=== PATIENT | female | born 1945 | race African-American/Black ===

== ENCOUNTER 2017-12-05 11:53 | Inpatient (IN) | payer MEDICARE ==
[~2017-12-05] VITALS: Ht 165.1 cm; Wt 157.1 kg
[~2017-12-05 11:53] MED LIST: AML5T PO; ASPI-231 PO; ATOR40TA52 PO; BISA5TAB PO; BUME2TAB3 PO; DICL1GEL35 TD; FLUT250M2 INH; GABA300C11 GT; ISO60SRT PO; MAGN400T7 PO; MET25T PO; NITR400A5 TL; PANT40T PO; POTA1TAB4 PO; TIOTCAP INH; WARF7.5T20 PO; [UNRECOGNIZED DRUG - CODE] PO
[2017-12-05] MEDS ORDERED: SODIUM CHLORIDE 0.9% 1,000 ML IV ONE (12:49)
[2017-12-05 12:58] LABS: Basophils # (auto) 0 uL; Basophils % (auto) 0.6 % (0.0-2.0); Eosinophils # (auto) 0.1 uL; Eosinophils % (auto) 1.7 % (0.0-7.0); Hemoglobin 15.5 g/dL (12.2-16.2); Lymphocytes # (auto) 1.7 uL; Lymphocytes % (auto) 25.5 % (10.0-50.0); Mean Corpuscular Hemoglobin 31.1 pg (28.0-32.0); Mean Corpuscular Volume 94.3 fL (80.0-100.0); Monocytes # (auto) 0.9 uL; Monocytes % (auto) 12.8 % (0.0-12.0); Neutrophils % (auto) 59.4 % (37.0-80.0); Nucleated Red Blood Cells % 0.1 %; Platelet Count (auto) 205 10^3/uL (140-450); Red Blood Cells 4.99 10^6/uL (4.0-5.20); Red Cell Distribution Width 15.1 % (11.8-14.3); White Blood Cell 6.8 10^3/uL (4.4-10.8)
[2017-12-05] MEDS ORDERED: cefTRIAXone 1GM/10ml IVPUSH 10 ML IV ONE (13:00)
[2017-12-05] MEDS ORDERED: KETOROLAC TROMETH 30 MG/ML 1ML VIAL IV ONE (13:00)
[2017-12-05] MEDS ORDERED: cloNIDine HCL 0.1 MG TAB PO ONE (13:00)
[2017-12-05 13:27] LABS: Alanine Aminotransferase 16 U/L (13-56); Albumin 3.2 g/dL (3.4-5.0); Alkaline Phosphatase 104 U/L (45-117); Anion Gap 7 (5-15); Aspartate Aminotransferase 17 U/L (15-37); Bilirubin, Total 0.9 mg/dL (0.2-1.0); Blood Urea Nitrogen 12 mg/dL (7-18); Calcium 8.7 mg/dL (8.5-10.1); Carbon Dioxide 26 mmol/L (21-32); Chloride 104 mmol/L (98-107); GFR African American 84 mL/min; GFR Non-African American 69 mL/min; Glucose 95 mg/dL (74-106); Potassium 3.8 mmol/L (3.5-5.1); Sodium 137 mmol/L (136-145); Total Protein 8.5 g/dL (6.4-8.2)
[2017-12-05] MEDS ORDERED: TEMAZEPAM 15 MG CAP PO PRN (15:15)
[2017-12-05] MEDS ORDERED: NITROGLYCERIN 0.4 MG SL TAB SL PRN (15:15)
[2017-12-05] MEDS ORDERED: DEXTROSE (50%) 50ML SYRG IV PRN (15:15)
[2017-12-05] MEDS ORDERED: LORazepam 0.5 MG TAB PO PRN (15:15)
[2017-12-05] MEDS ORDERED: ACETAMINOPHEN 500 MG TAB PO PRN (15:15)
[2017-12-05] MEDS ORDERED: PROMETHAZINE HCL 25 MG/ML 1ML IV PRN (15:15)
[2017-12-05] MEDS ORDERED: LACTULOSE 20Gm/30ML SOLN PO PRN (15:15)
[2017-12-05] MEDS ORDERED: MORPHINE SULFATE 4 MG/ML SYR/VIAL IV PRN (15:15)
[2017-12-05 15:32] LABS: Uric Acid 5.8 mg/dL (2.6-6.0)
[2017-12-05 15:50] LABS: INR 1.05 (0.9-1.15); Partial Thromboplastin Time 31.1 sec (22.64-33.71); Prothrombin Time 11.5 sec (9.37-12.3)
[2017-12-05 15:54] LABS: CRP High Sensitivity 12.5 mg/dL (< 0.3)
[2017-12-05] MEDS: SODIUM CHLORIDE 0.9% 1,000 ML IV SCH (16:20)
[2017-12-05] MEDS: CLINDAMYCIN 600MG IV 50 ML IV SCH (16:20)
[2017-12-05] MEDS ORDERED: WARFARIN SODIUM 2.5 MG TAB PO ONE (17:00)
[2017-12-05] MEDS: InsuLIN REG 1unit/0.01ml Soln (100units/ml) SC SCH ×2 (17:00→22:00)
[2017-12-05 17:39] VITALS: BP 146/94
[2017-12-05] MEDS: ACCU-CHEK COMFORT CURVE STRIP VI SCH (17:59)
[2017-12-05] MEDS ORDERED: PATIENTS OWN MEDICATION (Atorvastatin Calcium 1 TAB) PO SCH (18:00)
[2017-12-05] MEDS: IPRATROPIUM BROM 0.5 MG/2.5ML INH SOL NEB SCH (18:15)
[2017-12-05] MEDS: BUDESONIDE (INHALATION) 0.5 MG/2 ML NEB NEB SCH (18:15)
[2017-12-05] MEDS: ALBUTEROL SULF 2.5 MG/0.5ML(0.5%) NEB SOLN NEB SCH (18:15)
[2017-12-05] MEDS: MORPHINE SULFATE 4 MG/ML SYR/VIAL IV PRN (20:02)
[2017-12-05] MEDS: ATORVASTATIN 20 MG TAB PO SCH (21:40)
[2017-12-05] MEDS: GABAPENTIN 300 MG CAP PO SCH (21:42)
[2017-12-05] MEDS: METOPROLOL TARTRATE 25 MG TAB PO SCH (21:42)
[2017-12-05 22:00] VITALS: BP 140/76
[2017-12-05] MEDS ORDERED: PATIENTS OWN MEDICATION (Fluticasone-Salmeterol (Advair Diskus 250/50) 1 PUFF) INH SCH (22:00)
[2017-12-05 23:53] VITALS: BP 140/76
[2017-12-06] MEDS: ALBUTEROL SULF 2.5 MG/0.5ML(0.5%) NEB SOLN NEB SCH ×4 (00:18→18:37)
[2017-12-06] MEDS: IPRATROPIUM BROM 0.5 MG/2.5ML INH SOL NEB SCH ×4 (00:18→18:37)
[2017-12-06] MEDS: MORPHINE SULFATE 4 MG/ML SYR/VIAL IV PRN ×3 (01:00→14:31)
[2017-12-06] MEDS: ACCU-CHEK COMFORT CURVE STRIP VI SCH ×2 (02:05→07:06)
[2017-12-06] MEDS: CLINDAMYCIN 600MG IV 50 ML IV SCH ×3 (02:31→16:30)
[2017-12-06] MEDS: SODIUM CHLORIDE 0.9% 1,000 ML IV SCH (03:38)
[2017-12-06 05:00] VITALS: BP 114/62
[2017-12-06] MEDS: GABAPENTIN 300 MG CAP PO SCH ×3 (05:57→23:05)
[2017-12-06 06:26] LABS: Basophils # (auto) 0 uL; Basophils % (auto) 0.7 % (0.0-2.0); Eosinophils # (auto) 0.2 uL; Eosinophils % (auto) 4.7 % (0.0-7.0); Hematocrit 43.4 % (36.0-46.0); Hemoglobin 14.1 g/dL (12.2-16.2); Lymphocytes # (auto) 1.2 uL; Lymphocytes % (auto) 27.6 % (10.0-50.0); Mean Corpuscular Hemoglobin 30.6 pg (28.0-32.0); Mean Corpuscular Hgb Conc. 32.5 g/dL (32.0-36.0); Monocytes # (auto) 0.7 uL; Monocytes % (auto) 15.8 % (0.0-12.0); Neutrophils # (auto) 2.3 uL; Neutrophils % (auto) 51.2 % (37.0-80.0); Platelet Count (auto) 192 10^3/uL (140-450); Red Blood Cells 4.62 10^6/uL (4.0-5.20); Red Cell Distribution Width 14.8 % (11.8-14.3); White Blood Cell 4.5 10^3/uL (4.4-10.8)
[2017-12-06 06:42] LABS: INR 1.01 (0.9-1.15); Partial Thromboplastin Time 29.8 sec (22.64-33.71)
[2017-12-06 06:45] LABS: Cholesterol 116 mg/dL (< 200); HDL Cholesterol 50 mg/dL (40-59); LDL Cholesterol 66 mg/dL (< 100); Triglycerides 78 mg/dL (< 150)
[2017-12-06] MEDS: InsuLIN REG 1unit/0.01ml Soln (100units/ml) SC SCH (07:00)
[2017-12-06 09:00] VITALS: BP 139/76
[2017-12-06] MEDS: METOPROLOL TARTRATE 25 MG TAB PO SCH ×2 (10:00→22:00)
[2017-12-06] MEDS ORDERED: PATIENTS OWN MEDICATION (Tiotropium Bromide Monohydrate (Spiriva Handihaler) 1 CAP) INH SCH (10:00)
[2017-12-06] MEDS: amLODIPine BESYLATE 5 MG TAB PO SCH (10:07)
[2017-12-06] MEDS: MAGNESIUM OXIDE 400 MG TAB PO SCH (10:07)
[2017-12-06] MEDS: cefTRIAXone 1GM/10ml IVPUSH 10 ML IV SCH (10:07)
[2017-12-06] MEDS: ISOSORBIDE MONONITRATE 60 MG TAB PO SCH (10:08)
[2017-12-06] MEDS: ASPirin-EC 81 mg tab PO SCH (10:08)
[2017-12-06] MEDS: PANTOPRAZOLE 40 MG TAB PO SCH (10:08)
[2017-12-06] MEDS: BISACODYL 5 MG EC TAB PO SCH (10:09)
[2017-12-06] MEDS: BUDESONIDE (INHALATION) 0.5 MG/2 ML NEB NEB SCH ×2 (12:11→18:37)
[2017-12-06 13:00] VITALS: BP 125/60
[2017-12-06] MEDS ORDERED: SODIUM CHLORIDE 0.9% 1,000 ML IV SCH (13:30)
[2017-12-06] MEDS ORDERED: WARFARIN SODIUM 2.5 MG TAB PO ONE (17:00)
[2017-12-06] MEDS: BUMETANIDE 1 MG TAB PO SCH (17:37)
[2017-12-06 17:54] VITALS: BP_SYST 114; BP_SYST 130; BP_DIAS 69
[2017-12-06 20:00] VITALS: BP 115/65
[2017-12-06 22:07] VITALS: BP 103/56
[2017-12-06] MEDS: ATORVASTATIN 20 MG TAB PO SCH (23:05)
[2017-12-06] MEDS: HYDROcodone-ACET 5/325MG TAB PO PRN (23:05)
[2017-12-07] MEDS: IPRATROPIUM BROM 0.5 MG/2.5ML INH SOL NEB SCH ×4 (00:16→18:26)
[2017-12-07] MEDS: ALBUTEROL SULF 2.5 MG/0.5ML(0.5%) NEB SOLN NEB SCH ×4 (00:16→18:27)
[2017-12-07] MEDS: CLINDAMYCIN 600MG IV 50 ML IV SCH ×3 (00:43→15:47)
[2017-12-07 04:34] VITALS: BP 113/62
[2017-12-07] MEDS: BUMETANIDE 1 MG TAB PO SCH ×2 (05:48→17:47)
[2017-12-07] MEDS: GABAPENTIN 300 MG CAP PO SCH ×3 (05:49→22:21)
[2017-12-07] MEDS: BUDESONIDE (INHALATION) 0.5 MG/2 ML NEB NEB SCH ×2 (06:03→18:27)
[2017-12-07 07:38] LABS: BUN/Creatinine Ratio 18.3; Calcium 8.2 mg/dL (8.5-10.1); INR 1.15 (0.9-1.15); Magnesium 2.2 mg/dL (1.6-2.6); Potassium 3.8 mmol/L (3.5-5.1); Prothrombin Time 12.6 sec (9.37-12.3)
[2017-12-07 09:00] VITALS: BP 102/77
[2017-12-07] MEDS: cefTRIAXone 1GM/10ml IVPUSH 10 ML IV SCH (10:27)
[2017-12-07] MEDS: ASPirin-EC 81 mg tab PO SCH (10:27)
[2017-12-07] MEDS: PANTOPRAZOLE 40 MG TAB PO SCH (10:28)
[2017-12-07] MEDS: MAGNESIUM OXIDE 400 MG TAB PO SCH (10:29)
[2017-12-07] MEDS: ISOSORBIDE MONONITRATE 60 MG TAB PO SCH (10:29)
[2017-12-07] MEDS: BISACODYL 5 MG EC TAB PO SCH (10:29)
[2017-12-07] MEDS: amLODIPine BESYLATE 5 MG TAB PO SCH (10:29)
[2017-12-07] MEDS: POTASSIUM CHL 20 Meq TABLET PO SCH (10:29)
[2017-12-07] MEDS: METOPROLOL TARTRATE 25 MG TAB PO SCH ×2 (11:00→22:21)
[2017-12-07] MEDS: SODIUM CHLORIDE 0.9% 1,000 ML IV SCH (11:00)
[2017-12-07 13:00] VITALS: BP 124/72
[2017-12-07] MEDS: HYDROcodone-ACET 5/325MG TAB PO PRN (16:23)
[2017-12-07] MEDS ORDERED: WARFARIN SODIUM 10 MG TAB PO ONE (17:00)
[2017-12-07 17:42] VITALS: BP 130/67
[2017-12-07 22:00] VITALS: BP 128/62
[2017-12-07] MEDS: ATORVASTATIN 20 MG TAB PO SCH (22:21)
[2017-12-08] VITALS (7 sets, daily range): BP systolic 109–132; BP diastolic 59–85
[2017-12-08] MEDS: CLINDAMYCIN 600MG IV 50 ML IV SCH ×3 (00:02→15:53)
[2017-12-08] MEDS: ALBUTEROL SULF 2.5 MG/0.5ML(0.5%) NEB SOLN NEB SCH ×4 (00:30→19:11)
[2017-12-08] MEDS: IPRATROPIUM BROM 0.5 MG/2.5ML INH SOL NEB SCH ×4 (00:30→19:11)
[2017-12-08] MEDS: GABAPENTIN 300 MG CAP PO SCH ×3 (05:27→22:12)
[2017-12-08] MEDS: BUMETANIDE 1 MG TAB PO SCH ×2 (05:27→17:33)
[2017-12-08] MEDS: BUDESONIDE (INHALATION) 0.5 MG/2 ML NEB NEB SCH ×2 (07:29→19:13)
[2017-12-08 09:41] LABS: INR 1.71 (0.9-1.15); Partial Thromboplastin Time 33.9 sec (22.64-33.71); Prothrombin Time 18.7 sec (9.37-12.3)
[2017-12-08] MEDS: cefTRIAXone 1GM/10ml IVPUSH 10 ML IV SCH (10:08)
[2017-12-08] MEDS: POTASSIUM CHL 20 Meq TABLET PO SCH ×2 (10:08→22:13)
[2017-12-08] MEDS: PANTOPRAZOLE 40 MG TAB PO SCH (10:08)
[2017-12-08] MEDS: BISACODYL 5 MG EC TAB PO SCH (10:09)
[2017-12-08] MEDS: HYDROcodone-ACET 5/325MG TAB PO PRN (10:09)
[2017-12-08] MEDS: ASPirin-EC 81 mg tab PO SCH (10:09)
[2017-12-08] MEDS: amLODIPine BESYLATE 5 MG TAB PO SCH (10:09)
[2017-12-08] MEDS: MAGNESIUM OXIDE 400 MG TAB PO SCH (10:10)
[2017-12-08] MEDS: ISOSORBIDE MONONITRATE 60 MG TAB PO SCH (10:10)
[2017-12-08] MEDS: SODIUM CHLORIDE 0.9% 1,000 ML IV SCH (10:34)
[2017-12-08] MEDS: METOPROLOL TARTRATE 25 MG TAB PO SCH ×2 (10:34→22:13)
[2017-12-08] MEDS ORDERED: POTASSIUM CHL 20 Meq TABLET PO ONE (13:15)
[2017-12-08] MEDS ORDERED: WARFARIN SODIUM 2.5 MG TAB PO ONE (17:00)
[2017-12-08 20:33] LABS: Urine Bacteria NONE SEEN /hpf (None Seen); Urine Blood Negative /uL (Negative); Urine Budding Yeast OCCASIONAL /hpf (None Seen); Urine Hyaline Cast FEW /lpf (0 - 2); Urine Specific Gravity 1.021 (1.001-1.035); Urine WBC <1 /hpf (0 - 5)
[2017-12-08] MEDS: ATORVASTATIN 20 MG TAB PO SCH (22:13)
[2017-12-09] MEDS: CLINDAMYCIN 600MG IV 50 ML IV SCH ×3 (00:29→15:50)
[2017-12-09] MEDS: ALBUTEROL SULF 2.5 MG/0.5ML(0.5%) NEB SOLN NEB SCH ×3 (00:52→12:18)
[2017-12-09] MEDS: IPRATROPIUM BROM 0.5 MG/2.5ML INH SOL NEB SCH ×3 (00:52→12:18)
[2017-12-09] MEDS: HYDROcodone-ACET 5/325MG TAB PO PRN (01:49)
[2017-12-09 05:00] VITALS: BP 107/57
[2017-12-09] MEDS: BUMETANIDE 1 MG TAB PO SCH (06:09)
[2017-12-09] MEDS: GABAPENTIN 300 MG CAP PO SCH ×2 (06:09→14:08)
[2017-12-09 06:34] LABS: Basophils # (auto) 0 uL; Basophils % (auto) 0.9 % (0.0-2.0); Eosinophils # (auto) 0.3 uL; Hematocrit 42.7 % (36.0-46.0); Lymphocytes # (auto) 1.4 uL; Lymphocytes % (auto) 36.7 % (10.0-50.0); Mean Corpuscular Hgb Conc. 32.8 g/dL (32.0-36.0); Mean Corpuscular Volume 94.6 fL (80.0-100.0); Monocytes # (auto) 0.6 uL; Monocytes % (auto) 17.2 % (0.0-12.0); Neutrophils # (auto) 1.4 uL; Neutrophils % (auto) 38.2 % (37.0-80.0); Nucleated Red Blood Cells % 0.1 %; Platelet Count (auto) 223 10^3/uL (140-450); Red Blood Cells 4.51 10^6/uL (4.0-5.20); White Blood Cell 3.8 10^3/uL (4.4-10.8)
[2017-12-09 06:40] LABS: INR 2.06 (0.9-1.15); Partial Thromboplastin Time 36.2 sec (22.64-33.71); Prothrombin Time 22.6 sec (9.37-12.3)
[2017-12-09 06:49] LABS: BUN/Creatinine Ratio 22.1; Calcium 8.7 mg/dL (8.5-10.1); Potassium 4.3 mmol/L (3.5-5.1)
[2017-12-09] MEDS: BUDESONIDE (INHALATION) 0.5 MG/2 ML NEB NEB SCH (07:02)
[2017-12-09 08:00] VITALS: BP 123/73
[2017-12-09 09:00] VITALS: BP 123/73
[2017-12-09] MEDS: POTASSIUM CHL 20 Meq TABLET PO SCH (09:23)
[2017-12-09] MEDS: ISOSORBIDE MONONITRATE 60 MG TAB PO SCH (09:23)
[2017-12-09] MEDS: MAGNESIUM OXIDE 400 MG TAB PO SCH (09:23)
[2017-12-09] MEDS: cefTRIAXone 1GM/10ml IVPUSH 10 ML IV SCH (09:23)
[2017-12-09] MEDS: amLODIPine BESYLATE 5 MG TAB PO SCH (09:24)
[2017-12-09] MEDS: ASPirin-EC 81 mg tab PO SCH (09:24)
[2017-12-09] MEDS: PANTOPRAZOLE 40 MG TAB PO SCH (09:24)
[2017-12-09] MEDS: BISACODYL 5 MG EC TAB PO SCH (09:25)
[2017-12-09] MEDS: METOPROLOL TARTRATE 25 MG TAB PO SCH (09:25)
[2017-12-09] MEDS: SODIUM CHLORIDE 0.9% 1,000 ML IV SCH (10:58)
[2017-12-09 12:00] VITALS: BP 104/61
[2017-12-09] MEDS ORDERED: CEPH-37 PO (13:33)
[2017-12-09] MEDS ORDERED: CLIN1CAP4 PO (13:33)
[2017-12-09] MEDS ORDERED: SACC250C PO (13:34)
[2017-12-09 14:51] VITALS: BP 104/61
[2017-12-09] MEDS ORDERED: WARFARIN SODIUM 2.5 MG TAB PO ONE (17:00)
== END 2017-12-09 17:40 | disposition home or self-care (01) | DRG 292 ==
LOC: ER 11:53 → TELE 11:54 → TELE-CENTR 16:44
PROVIDERS: ADMIT Internal Medicine; ATTEND Internal Medicine
DX: I13.0 Hypertensive heart and chronic kidney disease with heart failure and stage 1 through stage 4 chronic kidney disease, or unspecified chronic kidney disease (principal); L03.113 Cellulitis of right upper limb; J96.10 Chronic respiratory failure, unspecified whether with hypoxia or hypercapnia; E11.22 Type 2 diabetes mellitus with diabetic chronic kidney disease; E66.01 Morbid (severe) obesity due to excess calories; I50.32 Chronic diastolic (congestive) heart failure; Z68.43 Body mass index [BMI] 50.0-59.9, adult; J44.9 Chronic obstructive pulmonary disease, unspecified; N18.3 Chronic kidney disease, stage 3 (moderate); E78.5 Hyperlipidemia, unspecified; M16.10 Unilateral primary osteoarthritis, unspecified hip; M19.041 Primary osteoarthritis, right hand; M65.841 Other synovitis and tenosynovitis, right hand; K59.00 Constipation, unspecified; Z82.49 Family history of ischemic heart disease and other diseases of the circulatory system; Z82.3 Family history of stroke; Z82.5 Family history of asthma and other chronic lower respiratory diseases; Z83.3 Family history of diabetes mellitus; Z86.711 Personal history of pulmonary embolism; Z86.718 Personal history of other venous thrombosis and embolism; Z86.73 Personal history of transient ischemic attack (TIA), and cerebral infarction without residual deficits; Z90.710 Acquired absence of both cervix and uterus; Z79.01 Long term (current) use of anticoagulants; Z79.899 Other long term (current) drug therapy; Z90.49 Acquired absence of other specified parts of digestive tract; I25.2 Old myocardial infarction; Z87.891 Personal history of nicotine dependence; Z71.3 Dietary counseling and surveillance
CPT/HCPCS: 36415; 71046; 73200; 80048; 80053; 80061; 81001; 82962; 83036; 83516; 83605; 83735; 83880; 84132; 84484; 84550; 85025; 85610; 85652; 85730; 86141; 86225; 86235; 86431; 87040; 93005; 93971; 94640; 94761; 96374; 96375; J1885; J3490